=== PATIENT | male | born 1985 | race Two or more races ===

== ENCOUNTER 2025-05-26 10:57 | Outpatient (AMB) | payer OTHER, SELFPAY ==
[2025-05-26 11:24] VITALS: BP 130/76; PULSE 59; O2SAT 96; BMI 42.2
--- NOTE | 2025-05-26 11:24 | A.OFFVIS_ITS ---
Vital Signs 05/26/25 11:24 Height 5 ft 9 in Weight 285 lb 7.978 oz BMI 42.2 BP 130/76 Blood Pressure Location Lt brachial Position Sitting Pulse 59 Pulse Source Pulse Oximeter Pulse Oximetry (%) 96 Oxygen Delivery Method Room Air Intake Visit Reasons: Somnolence Intake Note: pt is here as a new patient for possible adriana, daytime somnolence, snores, gasping for air is noted, he also states he has a cough, Fisher Purse Seine Required: No Allergies No Known Allergies Allergy (Verified 05/26/25 11:37) Medication List - Last Reconciled 05/26/25 by Meron Warren MD sildenafil 50 mg PO Do you need a note to return to daycare/school/sports/work: No HPI HPI Somnolence: Details: 39 years old gentleman is being seen for the 1st time to be evaluated for sleep apnea and management. He is lives with his for the last 8-9 years. It is his who has told him that his snoring is getting worse in the past year or so. He is also feeling more tired and sleepy during the daytime. He claims that he wakes up many times with gasping like feeling, and he never gets good sleep at night. He tends to doze off or fall asleep inappropriately during the daytime. He is staying mostly in the house. He is on disability due to mental health issues and has not worked for 7-8 years, so his lifestyle is very sedentary. He does have some erectile dysfunction and uses sildenafil 50 mg once in a while. He is not on any other specific medications . Denies using any illicit drugs Denies alcohol abuse Former smoker and quit more than 13 years ago. [facility], [facility] Medical History (Updated 05/26/25 @ 12:00 by Meron Warren MD) Somnolence syndrome Retrognathia Morbid obesity Social History Patient Tobacco Use Status: Former Tobacco user Review of Systems Const All systems reviewed & are unremarkable except as noted in HPI and below Eyes Reports no additional complaints ENT Reports no additional complaints Card Reports no additional complaints and Denies dyspnea on exertion Resp Reports no additional complaints, Denies cough, Denies hemoptysis, Denies dyspnea on exertion and Denies wheezing GI Reports no additional complaints Reports erectile dysfunction Musc Reports no additional complaints Skin/Breast Reports system reviewed and no additional complaints, except as documented Neuro Reports no additional complaints Psych Reports depression (mild ) Endo Reports no additional complaints Carrington/Lymph Reports no additional complaints Aller/Immun Reports no additional complaints and Denies wheezing Physical Exam Vital Signs: Last Vital Signs Pulse 59 05/26/25 11:24 BP 130/76 05/26/25 11:24 Pulse Ox 96 05/26/25 11:24 Oxygen Delivery Method Room Air 05/26/25 11:24 BMI result Body Mass Index 42.2 Grossly obese with a round face and obese neck Const General: healthy appearing (Except for being overweight), comfortable, no acute distress, alert and awake Orientation/consciousness: patient oriented x3 HEENT Head: Yes normal to inspection General nose exam: No nasal polyps present and No nasal discharge present Face and sinus: Yes sinuses nontender Mouth: oropharynx abnormals (Moderately narrow and crowded , MALLAMPATI SCALE 3 ) Teeth and gingiva: other (He does have mild RETROGNATHIA of the lower jaw) Throat: Yes posterior oropharynx normal Eyes General: appearance normal, both eyes and all related structures Neck Neck: Yes normal visual inspection, Yes no lymphadenopathy, Yes trachea midline, Yes no JVD and Yes other (Neck circumference 17 in) Thyroid: Thyroid normal Chest Chest palpation & inspection: normal inspection of the chest, normal palpation of entire chest wall and no tenderness Resp Effort & Inspection: normal respiratory effort Auscultation: clear to auscultation bilaterally, no rhonchi and no wheezes Cardio Palpation: normal PMI Rate: regular rate Rhythm: regular rhythm Heart sounds: no gallops and no murmurs Peripheral pulses: Peripheral pulses 2+ throughout GI Palpation (GI): Soft to palpation, nontender, No hepatosplenomegaly present, no masses and Other GI palpation findings present (Abdomen is moderately obese and protuberant) Auscultation: normal bowel sounds Back/Spine/Pelvis Thoracic/Lumbar Spine: thoracic and lumbar spine normal to inspection Skin General skin exam: no rashes or lesions noted Neuro General: patient oriented x3 and no focal motor deficits Cranial nerves: Yes CN's II-XII intact bilaterally Extrem General: Yes normal to inspection, Yes no clubbing, cyanosis or edema and Yes no calf tenderness Psych Appearance: grossly normal and well kempt Speech and movement: Normal speech and movement present Results Reviewed Results Reviewed: EPWORTH SLEEPINESS SCALE 17/24 Assessment & Plan Assessment & Plan (1) Morbid obesity: Comment: PATIENT IS GROSSLY OBESE, HAS PUT ON MORE WEIGHT DURING THE PAST YEAR. CURRENT BMI 42.2 C/W MORBID OBESITY Code(s): E66.01 - Morbid (severe) obesity due to excess calories Category: Medical Plan: DISCUSSED WITH HIM ABOUT THE OBESITY BEING MAIN FACTOR FOR HIS SLEEP APNEA HE WILL NEED TO GO ON A WEIGHT REDUCTION PROGRAM OR TRY TO LOSE WEIGHT BY HIMSELF. I THINK THIS WILL BE MORE EFFECTIVE AFTER WE CONFIRM AND START TREATING HIS SLEEP APNEA. (2) Retrognathia: Comment: HE HAS A SLIGHT OVERBITE CAUSING RETROGNATHIA OF THE LOWER JAW Code(s): M26.19 - Other specified anomalies of jaw-cranial base relationship Category: Medical Plan: EXPLAINED TO THE PATIENT THAT THIS IS ANOTHER FACTOR CAUSING SLEEP APNEA (3) Somnolence syndrome: Comment: HE WAKES UP FREQUENTLY AND DOES NOT GET GOOD SLEEP AT NIGHT. SO A RESULT HE HAS TENDENCY TO DOZE OF DURING THE DAYTIME EPWORTH SLEEPINESS SCALE 17/24 Code(s): R40.0 - Somnolence Category: Medical Plan: THIS IS INDICATED OF POOR SLEEP AT NIGHT, AND SUGGESTIVE OF OBSTRUCTIVE SLEEP APNEA Plan AFTER DISCUSSING WITH HIM THOROUGHLY , HE IS AGREEABLE TO UNDERGO HOME-BASED SLEEP STUDY. AND TREATMENT PLANNING AFTER THE STUDY Orders: Orders RT home sleep study Today E66.01 - Morbid (severe) obesity due to excess calories, M26.19 - Other specified anomalies of jaw-cranial base relationship, R40.0 - Somnolence Coding Level of Care Code New Pt Level 4 (82225) Diagnoses Morbid obesity E66.01 Retrognathia M26.19 Somnolence syndrome R40.0
--- OUTSIDE RECORDS SUMMARY | 2025-05-26 11:46 | XMS_ITS | Clinical Summary ---
Author Organization [employer] Formerly [facility] ity Address [address] [place] [address] Care Team Providers Care Career Law Clerk Name Role Phone Unavailable Primary Care Provider Unavailabl e Social History Tobacco Use Types Packs/Day Years Used Date Smoking Tobacco: Never Assessed Sex and Gender Information Value Date Recorded Sex Assigned at Not on file Legal Sex Male 12:21 AM EST Gender Identity Not on file Sexual Orientation Not on file Plan of Treatment Health Maintenance Due Date Last Done Comments DTaP,Tdap,and Td Vaccines (1 - Tdap) 2006 Hepatitis B Vaccines (1 of 3 - 19+ 3-dose series) 2006 COVID-19 Vaccine (2023-2 5 season) 2024 Depression Screening 11/03/2024 Influenza Vaccine (#1) 2025 HIB Vaccines Aged Out No longer eligi ble based on patient's age to complete this topic HPV Vaccines Aged Out No longer eligi ble based on patient's age to complete this topic Hepatitis A Vaccines Aged Out No long er eligible based on patient's age to complete this topic IPV Vaccines Aged Out No longer eligi ble based on patient's age to complete this topic MMR Vaccines Aged Out No longer eligi ble based on patient's age to complete this topic Meningococcal ACWY Vaccine Aged Out N o longer eligible based on patient's age to complete this topic Meningococcal B Vaccine Aged Out No l onger eligible based on patient's age to complete this topic Pneumococcal Vaccine: Pediat rics (0 to 5 Years) and At-Risk Patients (6 to 49 Years) Aged Out No longer eligible b ased on patient's age to complete this topic RSV Immunization Patients Un maria l 20 months Aged Out No longer eligible b ased on patient's age to complete this topic Varicella Vaccines Aged Out No longer eligible based on patient's age to complete this topic
== END 2025-05-26 11:49 | disposition home or self-care (01) ==
LOC: HO.HPS 10:58
PROVIDERS: PCP Internal Medicine; Referring Provider Internal Medicine; Visit Provider Internal Medicine
DX: E66.01 Morbid (severe) obesity due to excess calories (principal); M26.19 Other specified anomalies of jaw-cranial base relationship; R40.0 Somnolence
CPT/HCPCS: 99204

== ENCOUNTER → 2025-05-26 10:57 | Outpatient (BNVA) | payer OTHER, SELFPAY | PROVIDERS: PCP Internal Medicine; Referring Provider Internal Medicine; Visit Provider Internal Medicine | DX: E66.01 Morbid (severe) obesity due to excess calories (principal); M26.19 Other specified anomalies of jaw-cranial base relationship; R40.0 Somnolence; Z68.41 Body mass index [BMI] 40.0-44.9, adult | CPT/HCPCS: 99202 ==

== ENCOUNTER → 2025-08-11 11:26 | Outpatient (REF) | payer OTHER, SELFPAY | LOC: HO.SL 11:26 | PROVIDERS: Visit Provider Internal Medicine | DX: R40.0 Somnolence (principal); M26.19 Other specified anomalies of jaw-cranial base relationship; E66.01 Morbid (severe) obesity due to excess calories | CPT/HCPCS: 95806 ==

== ENCOUNTER → 2025-08-11 12:38 | Outpatient (BNV) | payer OTHER, SELFPAY | PROVIDERS: Visit Provider Internal Medicine | DX: G47.33 Obstructive sleep apnea (adult) (pediatric) (principal) | CPT/HCPCS: 95806 ==

== ENCOUNTER 2025-08-25 10:57 | Outpatient (AMB) | payer OTHER, SELFPAY ==
[2025-08-25 11:16] VITALS: BMI 37.3
--- NOTE | 2025-08-25 11:16 | A.OFFVIS_ITS ---
Vital Signs 08/25/25 11:16 08/25/25 11:17 Height 5 ft 9 in 5 ft 9 in Weight 252 lb 6.868 oz 289 lb 14.526 oz BMI 37.3 42.8 BP 102/60 Blood Pressure Location Lt brachial Position Sitting Pulse 63 Pulse Source Pulse Oximeter Pulse Oximetry (%) 97 Oxygen Delivery Method Room Air Intake Visit Reasons: Obstructive sleep apnea Intake Note: pt is here for sleep study results. Radiology Physician Assistant Required: No Welding Technician: Welding Technician offered & declined Allergies No Known Allergies Allergy (Verified 08/25/25 11:40) Medication List - Last Reconciled 08/25/25 by Meron Warren MD sildenafil 50 mg PO DIRECTED Do you need a note to return to daycare/school/sports/work: No HPI HPI Obstructive sleep apnea: Details: 39 years old gentleman with morbid obesity, had home-based sleep study and is here. For follow-up Continues to have excessive snoring at night, continues to wake. up in the mo rning still tired And remains tired and sleepy during the daytime. He is home-based sleep study shows mild degree of obstructive sleep apnea mainly in supine position. However because he has ongoing chronic mental health issues , he is anxious to start the CPAP therapy. He would not be able to comply with position therapy, and he is not sure if he can lose much weight. [facility] Medical History (Updated 08/25/25 @ 11:47 by Meron Warren MD) SARAI (obstructive sleep apnea) Somnolence syndrome Retrognathia Morbid obesity Social History Patient Tobacco Use Status: Former Tobacco user Review of Systems Const All systems reviewed & are unremarkable except as noted in HPI and below Eyes Reports no additional complaints ENT Reports no additional complaints Card Reports no additional complaints and Denies dyspnea on exertion Resp Reports no additional complaints, Denies cough, Denies hemoptysis, Denies dyspnea on exertion and Denies wheezing GI Reports no additional complaints Reports erectile dysfunction Musc Reports no additional complaints Skin/Breast Reports system reviewed and no additional complaints, except as documented Neuro Reports no additional complaints Psych Reports depression (mild ) Endo Reports no additional complaints Carrington/Lymph Reports no additional complaints Aller/Immun Reports no additional complaints and Denies wheezing Physical Exam Vital Signs: Last Vital Signs Pulse 63 08/25/25 11:17 BP 102/60 08/25/25 11:17 Pulse Ox 97 08/25/25 11:17 Oxygen Delivery Method Room Air 08/25/25 11:17 BMI result Body Mass Index 42.8 Grossly obese with a round face and obese neck Const General: healthy appearing (Except for being overweight), comfortable, no acute distress, alert and awake Orientation/consciousness: patient oriented x3 HEENT Head: Yes normal to inspection General nose exam: No nasal polyps present and No nasal discharge present Face and sinus: Yes sinuses nontender Mouth: oropharynx abnormals (Moderately narrow and crowded , MALLAMPATI SCALE 3 ) Teeth and gingiva: other (He does have mild RETROGNATHIA of the lower jaw) Throat: Yes posterior oropharynx normal Eyes General: appearance normal, both eyes and all related structures Neck Neck: Yes normal visual inspection, Yes no lymphadenopathy, Yes trachea midline, Yes no JVD and Yes other (Neck circumference 17 in) Thyroid: Thyroid normal Chest Chest palpation & inspection: normal inspection of the chest, normal palpation of entire chest wall and no tenderness Resp Effort & Inspection: normal respiratory effort Auscultation: clear to auscultation bilaterally, no rhonchi and no wheezes Cardio Palpation: normal PMI Rate: regular rate Rhythm: regular rhythm Heart sounds: no gallops and no murmurs Peripheral pulses: Peripheral pulses 2+ throughout GI Palpation (GI): Soft to palpation, nontender, No hepatosplenomegaly present, no masses and Other GI palpation findings present (Abdomen is moderately obese and protuberant) Auscultation: normal bowel sounds Back/Spine/Pelvis Thoracic/Lumbar Spine: thoracic and lumbar spine normal to inspection Skin General skin exam: no rashes or lesions noted Neuro General: patient oriented x3 and no focal motor deficits Cranial nerves: Yes CN's II-XII intact bilaterally Extrem General: Yes normal to inspection, Yes no clubbing, cyanosis or edema and Yes no calf tenderness Psych Appearance: grossly normal and well kempt Speech and movement: Normal speech and movement present Results Reviewed Results Reviewed: Home-based sleep study on 08/12/2025 shows the following. Total sleep time AHI 8, mostly in supine position but 5.3 in right lateral position Snoring for 16% of the sleep time. There is minimal degree of nocturnal hypoxemia Assessment & Plan Assessment & Plan (1) Morbid obesity: Comment: PATIENT IS GROSSLY OBESE, HAS PUT ON MORE WEIGHT DURING THE PAST YEAR. CURRENT BMI 42.8 C/W MORBID OBESITY Code(s): E66.01 - Morbid (severe) obesity due to excess calories Category: Medical Plan: Talked about his weight. He understand that he needs to lose weight however, he is not motivated. Stays mostly sedentary. He is not sure if he can lose any weight. (2) Retrognathia: Comment: HE HAS A SLIGHT OVERBITE CAUSING RETROGNATHIA OF THE LOWER JAW AND THIS IS PARTLY CONTRIBUTING TO HIS SLEEP APNEA. Code(s): M26.19 - Other specified anomalies of jaw-cranial base relationship Category: Medical Plan: EXPLAINED TO THE PATIENT AND HE UNDERSTANDS. (3) Somnolence syndrome: Comment: HE WAKES UP FREQUENTLY AND DOES NOT GET GOOD SLEEP AT NIGHT. SO A RESULT HE HAS TENDENCY TO DOZE OF DURING THE DAYTIME EPWORTH SLEEPINESS SCALE 17/24 THE SLEEP STUDY DOES CONFIRM THAT HE HAS OBSTRUCTIVE SLEEP APNEA AND THAT SEEMS TO BE THE MAIN CAUSE OF HIS HYPERSOMNOLENCE. Code(s): R40.0 - Somnolence Category: Medical Plan: HE WILL BE STARTED ON THE CPAP THERAPY AND WE WILL WATCH CLOSELY. (4) SARAI (obstructive sleep apnea): Comment: PATIENT DOES HAVE SLEEP APNEA, IT IS MILD WITH TOTAL SLEEP TIME AHI 8, BUT HE IS SYMPTOMATIC. HE IS ALSO NOT SURE IF HE CAN LOSE MUCH WEIGHT AND ALSO HE IS NOT GOING TO BE ABLE TO SLEEP IN LATERAL POSITION. Code(s): G47.33 - Obstructive sleep apnea (adult) (pediatric) Category: Medical Plan: FOR THIS REASON WE WILL GO AHEAD AND ORDER CPAP THERAPY FOR HIM. HE WAS EXPLAINED AND EDUCATED ABOUT THE CPAP THERAPY. WILL BE STARTED ON AUTO PAP MODE PRESSURE SETTING 6-16 CM, HE WILL BE TRIED BOTH ON NASAL WELL FULLFACE MASK AND SEE WHICH EVER FITS HIM WELL. HE WILL BE MONITORED CLOSELY. Coding Level of Care Code Est Pt Level 3 (54671) Diagnoses Morbid obesity E66.01 Retrognathia M26.19 Somnolence syndrome R40.0 SARAI (obstructive sleep apnea) G47.33
[2025-08-25 11:17] VITALS: BP 102/60; PULSE 63; O2SAT 97; BMI 42.8
== END 2025-08-25 11:42 | disposition home or self-care (01) ==
LOC: HO.HPS 10:58
PROVIDERS: PCP Internal Medicine; Visit Provider Internal Medicine
DX: E66.01 Morbid (severe) obesity due to excess calories (principal); M26.19 Other specified anomalies of jaw-cranial base relationship; R40.0 Somnolence; G47.33 Obstructive sleep apnea (adult) (pediatric)
CPT/HCPCS: 99213

== ENCOUNTER → 2025-08-25 10:57 | Outpatient (BNVA) | payer OTHER, SELFPAY | PROVIDERS: PCP Internal Medicine; Visit Provider Internal Medicine | DX: G47.33 Obstructive sleep apnea (adult) (pediatric) (principal); E66.01 Morbid (severe) obesity due to excess calories; M26.19 Other specified anomalies of jaw-cranial base relationship; R40.0 Somnolence | CPT/HCPCS: 99212 ==

== ENCOUNTER 2025-10-20 14:20 | Outpatient (AMB) | payer OTHER, SELFPAY ==
[2025-10-20 14:27] VITALS: BP 120/84; PULSE 75; O2SAT 96; BMI 43.0
--- NOTE | 2025-10-20 14:27 | MHC.OFFVIS ---
Vital Signs 10/20/25 14:27 Height 5 ft 9 in Weight 291 lb 0.163 oz BMI 43.0 BP 120/84 Blood Pressure Location Lt brachial Pulse 75 Pulse Source Pulse Oximeter Pulse Oximetry (%) 96 Oxygen Delivery Method Room Air Intake Visit Reasons: Obstructive sleep apnea Intake Note: pt is here for follow up and states he is feeling alright, cpap is going okay but has had a cold for the past few weeks due to a cold. Strategic Communications Specialist: Strategic Communications Specialist offered & declined Allergies No Known Allergies Allergy (Verified 10/20/25 14:44) Medication List - Last Reconciled 10/20/25 by Meron Warren MD sildenafil 50 mg PO DIRECTED Do you need a note to return to daycare/school/sports/work: No HPI HPI Obstructive sleep apnea: Details: 39 YEARS OLD GENTLEMAN MORBIDLY OBESE WITH NEWLY CONFIRMED DIAGNOSIS OF OBSTRUCTIVE SLEEP APNEA. HAS BEEN STARTED ON CPAP THERAPY AND HE IS TOLERATING IT VERY WELL. HE USES FULLFACE MASK WITH PRESSURE SETTING OF 6-20 CM. HE HAS NO ISSUE WITH THE MASK OR CPAP DEVICE. IN THE LAST WEEK HE HAD SOME COMMON COLD SYMPTOMS AND WAS HAVING DIFFICULTY IN USING THE CPAP NOW HE IS OKAY. HE IS AWARE OF THE FACT THAT HE HAS TO LOSE WEIGHT BUT HAS NOT STARTED WATCHING HIS DIET YET. HE DENIES ANY COUGH OR WHEEZING ATTACKS. [facility] Medical History SARAI (obstructive sleep apnea) Somnolence syndrome Retrognathia Morbid obesity Social History Patient Tobacco Use Status: Former Tobacco user Review of Systems Const All systems reviewed & are unremarkable except as noted in HPI and below Eyes Reports no additional complaints ENT Reports no additional complaints Card Reports no additional complaints and Denies dyspnea on exertion Resp Reports no additional complaints, Denies cough, Denies hemoptysis, Denies dyspnea on exertion and Denies wheezing GI Reports no additional complaints Reports erectile dysfunction Musc Reports no additional complaints Skin/Breast Reports system reviewed and no additional complaints, except as documented Neuro Reports no additional complaints Psych Reports depression (mild ) Endo Reports no additional complaints Carrington/Lymph Reports no additional complaints Aller/Immun Reports no additional complaints and Denies wheezing Physical Exam Vital Signs: Last Vital Signs Pulse 75 10/20/25 14:27 BP 120/84 12/18/25 14:27 Pulse Ox 96 10/20/25 14:27 Oxygen Delivery Method Room Air 10/20/25 14:27 BMI result Body Mass Index 43.0 Grossly obese with a round face and obese neck Const General: healthy appearing (Except for being overweight), comfortable, no acute distress, alert and awake Orientation/consciousness: patient oriented x3 HEENT Head: Yes normal to inspection General nose exam: No nasal polyps present and No nasal discharge present Face and sinus: Yes sinuses nontender Mouth: oropharynx abnormals (Moderately narrow and crowded , MALLAMPATI SCALE 3 ) Teeth and gingiva: other (He does have mild RETROGNATHIA of the lower jaw) Throat: Yes posterior oropharynx normal Eyes General: appearance normal, both eyes and all related structures Neck Neck: Yes normal visual inspection, Yes no lymphadenopathy, Yes trachea midline, Yes no JVD and Yes other (Neck circumference 17 in) Thyroid: Thyroid normal Chest Chest palpation & inspection: normal inspection of the chest, normal palpation of entire chest wall and no tenderness Resp Effort & Inspection: normal respiratory effort Auscultation: clear to auscultation bilaterally, no rhonchi and no wheezes Cardio Palpation: normal PMI Rate: regular rate Rhythm: regular rhythm Heart sounds: no gallops and no murmurs Peripheral pulses: Peripheral pulses 2+ throughout GI Palpation (GI): Soft to palpation, nontender, No hepatosplenomegaly present, no masses and Other GI palpation findings present (Abdomen is moderately obese and protuberant) Auscultation: normal bowel sounds Back/Spine/Pelvis Thoracic/Lumbar Spine: thoracic and lumbar spine normal to inspection Skin General skin exam: no rashes or lesions noted Neuro General: patient oriented x3 and no focal motor deficits Cranial nerves: Yes CN's II-XII intact bilaterally Extrem General: Yes normal to inspection, Yes no clubbing, cyanosis or edema and Yes no calf tenderness Psych Appearance: grossly normal and well kempt Speech and movement: Normal speech and movement present Results Reviewed Results Reviewed: COMPLIANCE REPORT REVIEWED. HE HAS USED 29/30 NIGHTS, 97%. AVERAGE USAGE IS 4 5 HOURS 37 MINUTES FOR 6 NIGHTS HE USED LESS THAN 4 HOURS BUT ON THE OTHER NIGHTS HE HAS USED 5-6 HOURS PER NIGHT. Assessment & Plan Assessment & Plan (1) Morbid obesity: Comment: PATIENT IS GROSSLY OBESE, HAS PUT ON MORE WEIGHT DURING THE PAST YEAR. CURRENT BMI 42.8 C/W MORBID OBESITY Code(s): E66.01 - Morbid (severe) obesity due to excess calories Category: Medical Plan: I DISCUSSED WITH HIM IN DETAIL AND EDUCATED HIM ABOUT DIET. AND ALSO HE HAS TO DO EXERCISE FOR HAVE TO 1 HOUR EVERY DAY. (2) SARAI (obstructive sleep apnea): Comment: PATIENT DOES HAVE SLEEP APNEA, IT IS MILD WITH TOTAL SLEEP TIME AHI 8, BUT HE IS SYMPTOMATIC. HE IS ALSO NOT SURE IF HE CAN LOSE MUCH WEIGHT AND ALSO HE IS NOT GOING TO BE ABLE TO SLEEP IN LATERAL POSITION. THUS HE OPTED TO GO ON CPAP THERAPY. IT IS WORKING VERY WELL AND HE IS VERY HAPPY WITH THE USE OF THE CPAP. .COMPLIANCE IS GOOD Code(s): G47.33 - Obstructive sleep apnea (adult) (pediatric) Category: Medical Plan: COMMENDED FOR GOOD COMPLIANCE AND ADVISED TO KEEP ON USING THE CPAP EVERY NIGHT. TRY TO USE UP TO ABOUT 6 HOURS EVERY NIGHT (3) Retrognathia: Comment: HE HAS A SLIGHT OVERBITE DUE TO RETROGNATHIA OF THE LOWER JAW AND THIS IS PARTLY CONTRIBUTING TO HIS SLEEP APNEA. Code(s): M26.19 - Other specified anomalies of jaw-cranial base relationship Category: Medical Plan: HAS BEEN EXPLAINED TO THE PATIENT AND HE UNDERSTANDS WELL Coding Level of Care Code Est Pt Level 3 (23906) Diagnoses Morbid obesity E66.01 SARAI (obstructive sleep apnea) G47.33 Retrognathia M26.19
--- OUTSIDE RECORDS SUMMARY | 2025-10-20 18:31 | XMS_ITS | Clinical Summary ---
Author Organization [facility] ity Address [address] [place] [address] Care Team Providers Care Revising Clerk Name Role Phone Unavailable Primary Care [...] of 3 - 19+ 3-dose series) 2006 HPV Vaccines (1 - 3-dose SCD M series) 2014 Depression Screening 11/03/2024 COVID-19 Vaccine (1 - 2024-2 6 season) 2025 Influenza Vaccine (#1) 2025 RSV Immunization Adult Patie nts (1 - 1-dose 75+ series) 2062 HIB Vaccines Aged Out No longer eligi [...]
== END 2025-10-20 14:45 | disposition home or self-care (01) ==
LOC: HO.HPS 14:20
PROVIDERS: PCP Internal Medicine; Visit Provider Internal Medicine
DX: E66.01 Morbid (severe) obesity due to excess calories (principal); G47.33 Obstructive sleep apnea (adult) (pediatric); M26.19 Other specified anomalies of jaw-cranial base relationship
CPT/HCPCS: 99213

== ENCOUNTER → 2025-10-20 14:20 | Outpatient (BNVA) | payer OTHER, SELFPAY | PROVIDERS: PCP Internal Medicine; Visit Provider Internal Medicine | DX: G47.33 Obstructive sleep apnea (adult) (pediatric) (principal); M26.19 Other specified anomalies of jaw-cranial base relationship; E66.01 Morbid (severe) obesity due to excess calories; Z68.41 Body mass index [BMI] 40.0-44.9, adult; Z99.89 Dependence on other enabling machines and devices | CPT/HCPCS: 99212 ==